=== PATIENT | male | born 1980 | race Hispanic/Latino ===

== ENCOUNTER 2022-11-08 15:05 | Inpatient (IN) | payer SELFPAY ==
[~2022-11-08] VITALS: Ht 172.7 cm; Wt 71.7 kg
[2022-11-08] MEDS ORDERED: Vancomycin IV 1 GM in SODIUM CHLORIDE 0.9% 250ML 250 ML IV ONE (15:45)
[2022-11-08] MEDS ORDERED: SODIUM CHLORIDE 0.9% 1000ML 1,000 ML IV ONE (15:45)
[2022-11-08] MEDS ORDERED: ACETAMINOPHEN 325 MG TAB PO ONE (15:45)
[2022-11-08 16:04] LABS: CLARITY,URINE SL CLOUDY (CLEAR); COLOR,URINE AMBER (YELLOW); KETONES,URINE 2+ (NEGATIVE); LEUKOCYTE ESTERASE ,URINE NEGATIVE (NEGATIVE); NITRITE,URINE NEGATIVE (NEGATIVE); PROTEIN,URINE DIPSTICK 2+ (NEGATIVE); URINE UROBILINOGEN 2 mg/dL (0.2 - 1)
[2022-11-08 16:10] LABS: BASOPHILS # (AUTO) 0.1 (0.0-0.1); BASOPHILS % 0.2 % (0.0-1.0); HEMATOCRIT 35.2 % (38.2-49.6); HEMOGLOBIN 12.9 g/dL (14.0-18.0); LYMPHOCYTES # (AUTO) 1.1 (1.0-3.2); LYMPHOCYTES % 3.5 % (18.0-39.1); MEAN CORPUSCULAR HEMOGLOBIN 29.9 pg (28-32); MEAN CORPUSCULAR HGB CONC 36.6 g/dL (31-35); MEAN CORPUSCULAR VOLUME 81.7 fL (81-99); MONOCYTES # (AUTO) 2.7 (0.2-0.8); MONOCYTES % 8.5 % (4.4-11.3); NEUTROPHILS # (AUTO) 27.3 (2.1-6.9); NEUTROPHILS % 86.7 % (38.7-80.0); PLATELET COUNT 329 x10e3/uL (140-360); RED BLOOD COUNT 4.31 x10e6/uL (4.3-5.7)
[2022-11-08 16:15] LABS: INR 1.22
[2022-11-08 16:16] LABS: PARTIAL THROMBOPLASTIN TIME 37.7 seconds (23.8-35.5)
[2022-11-08 16:23] LABS: ALBUMIN 3.1 g/dL (3.5-5.0); ALBUMIN/GLOBULIN RATIO 0.7 (0.8-2.0); AMORPHOUS SEDIMENT,URINE MANY (FEW); ANION GAP 17.4 mmol/L (8-16); BACTERIA,URINE FEW /HPF; CALCIUM 9.3 mg/dL (8.4-10.2); CREATININE, SERUM 0.97 mg/dL (0.72-1.25); POTASSIUM 4.4 mmol/L (3.5-5.1)
[2022-11-08] MEDS ORDERED: DEXTROSE 50% SYRINGE 50 ML IV PRN (16:45)
[2022-11-08] MEDS ORDERED: TETANUS/DIPHTHERIA TOX ADULT 0.5 ML SYR IM ONE (17:00)
[2022-11-08] MEDS: INSULIN LISPRO 100 UNIT/1 ML 3ML VIAL SQ SCH (18:23)
[2022-11-08] MEDS: SODIUM CHLORIDE 0.9% 1000ML 1,000 ML IV SCH (18:30)
[2022-11-08 21:13] VITALS: BP 113/84; PULSE 118; RESP 18; TEMP 97.7; O2SAT 100
[2022-11-08 21:33] VITALS: BP 113/84; PULSE 118; RESP 18; TEMP 97.7; O2SAT 100
[2022-11-08] MEDS ORDERED: LISINOPRIL10 MG PO (21:40)
[2022-11-08] MEDS ORDERED: METFORMIN HCL500 MG PO (21:40)
[2022-11-08 21:42] VITALS: BP 113/84; PULSE 118; RESP 18; TEMP 97.7; O2SAT 100
[2022-11-08] MEDS ORDERED: VENTOLIN HFA18 GM INH (21:42)
[2022-11-08] MEDS: HYDROMORPHONE 1MG/1ML INJ IV PRN (22:00)
[2022-11-09] VITALS (9 sets, daily range): BP systolic 106–117; BP diastolic 57–82; PULSE 100–131; RESP 18–20; TEMP 97.3–100.3; O2SAT 92–99
[2022-11-09] MEDS: SODIUM CHLORIDE 0.9% 1000ML 1,000 ML IV SCH ×3 (01:11→16:45)
[2022-11-09] MEDS: Vancomycin IV 1 GM in SODIUM CHLORIDE 0.9% 250ML 250 ML IV SCH ×2 (04:32→15:07)
[2022-11-09] MEDS: HYDROMORPHONE 1MG/1ML INJ IV PRN (04:33)
[2022-11-09] MEDS: ACETAMINOPHEN 325 MG TAB PO PRN (04:53)
[2022-11-09] MEDS: INSULIN LISPRO 100 UNIT/1 ML 3ML VIAL SQ SCH ×5 (06:00→20:58)
[2022-11-09 07:15] LABS: BASOPHILS # (AUTO) 0.1 (0.0-0.1); BASOPHILS % 0.4 % (0.0-1.0); HEMATOCRIT 33.3 % (38.2-49.6); HEMOGLOBIN 11.5 g/dL (14.0-18.0); LYMPHOCYTES # (AUTO) 1.3 (1.0-3.2); LYMPHOCYTES % 4.9 % (18.0-39.1); MEAN CORPUSCULAR HEMOGLOBIN 29.4 pg (28-32); MEAN CORPUSCULAR HGB CONC 34.5 g/dL (31-35); MEAN CORPUSCULAR VOLUME 85.2 fL (81-99); MONOCYTES # (AUTO) 2.3 (0.2-0.8); MONOCYTES % 9.2 % (4.4-11.3); NEUTROPHILS # (AUTO) 21.4 (2.1-6.9); NEUTROPHILS % 84.7 % (38.7-80.0); PLATELET COUNT 303 x10e3/uL (140-360); RED BLOOD COUNT 3.91 x10e6/uL (4.3-5.7); RED CELL DISTRIBUTION WIDTH 12.9 % (11.7-14.4)
[2022-11-09 07:37] LABS: ALBUMIN 2.5 g/dL (3.5-5.0); ALBUMIN/GLOBULIN RATIO 0.6 (0.8-2.0); ANION GAP 13.7 mmol/L (8-16); CALCIUM 8.6 mg/dL (8.4-10.2); CREATININE, SERUM 0.86 mg/dL (0.72-1.25); POTASSIUM 3.7 mmol/L (3.5-5.1)
[2022-11-09] MEDS ORDERED: DOCUSATE SODIUM 100 MG CAP PO PRN (08:00)
[2022-11-09] MEDS ORDERED: MELATONIN 3 MG TAB PO PRN (08:00)
[2022-11-09] MEDS ORDERED: ALBUTEROL/IPRATROPIUM 3 ML NEB NEB PRN (08:00)
[2022-11-09] MEDS ORDERED: METOPROLOL TARTRATE INJ 1 MG/ML VIAL IV PRN (08:00)
[2022-11-09] MEDS ORDERED: SIMETHICONE 80 MG CHEW PO PRN (08:00)
[2022-11-09 08:34] LABS: CHOL/HDL RATIO 4.4 (3.9-4.7)
[2022-11-09 08:35] LABS: LYMPHOCYTES % (MANUAL) 3 % (19-48); MONOCYTES % (MANUAL) 8 % (3.4-9.0); NEUTROPHILS % (MANUAL) 89 % (40-74); PLATELET ESTIMATE ADEQUATE; PLATELET MORPHOLOGY COMMENT NORMAL; RBC MORPHOLOGY COMMENT NORMAL
[2022-11-09] MEDS: FAMOTIDINE 20 MG TAB PO SCH ×2 (08:37→17:20)
[2022-11-09] MEDS ORDERED: BUPIVACAINE HCL 0.5% INJ 30 ML VIAL INJ ONE (10:43)
[2022-11-09] MEDS ORDERED: DEXAMETHASONE SOD PHOS INJ 4 MG/ML SDV ONE (11:47)
[2022-11-09] MEDS ORDERED: PROPOFOL IV EMULSION 10 MG/ML 20 ML VIAL ONE (11:47)
[2022-11-09] MEDS ORDERED: LIDOCAINE HCL 2% LOCAL INJ 5 ML SDV VIAL INJ ONE (11:47)
[2022-11-09] MEDS ORDERED: POVIDONE IODINE 0.05% 0.05 % ML PO ONE (11:47)
[2022-11-09] MEDS ORDERED: ONDANSETRON HCL INJ 2MG/ML 2ML 2 MG/ML VIAL ONE (11:47)
[2022-11-09] MEDS ORDERED: SEVOFLURANE INHAL SOLN 250 ML PEN BTL ONE (11:48)
[2022-11-09] MEDS ORDERED: TETANUS/DIPHTHERIA TOX ADULT 0.5 ML SYR IM ONE (12:30)
[2022-11-09] MEDS ORDERED: FENTANYL CITRATE/PF 100MCG/2 ML INJ ONE (13:20)
[2022-11-09] MEDS: ENOXAPARIN SOD INJ 40 MG/0.4 ML SYR SC SCH (17:21)
[2022-11-09] MEDS: CEFEPIME 2 GM in SODIUM CHLORIDE 0.9% 100 ML IV SCH (20:51)
[2022-11-10] VITALS (9 sets, daily range): BP systolic 98–129; BP diastolic 64–88; PULSE 91–105; RESP 16–22; TEMP 97.2–99.4; O2SAT 92–99
[2022-11-10] MEDS: SODIUM CHLORIDE 0.9% 1000ML 1,000 ML IV SCH ×4 (00:19→23:15)
[2022-11-10] MEDS: Vancomycin IV 1 GM in SODIUM CHLORIDE 0.9% 250ML 250 ML IV SCH ×2 (04:15→17:44)
[2022-11-10 05:00] LABS: BASOPHILS # (AUTO) 0.1 (0.0-0.1); BASOPHILS % 0.3 % (0.0-1.0); HEMATOCRIT 33.9 % (38.2-49.6); HEMOGLOBIN 11.5 g/dL (14.0-18.0); LYMPHOCYTES % 3.7 % (18.0-39.1); MEAN CORPUSCULAR HGB CONC 33.9 g/dL (31-35); MEAN CORPUSCULAR VOLUME 85.6 fL (81-99); MONOCYTES # (AUTO) 1.9 (0.2-0.8); MONOCYTES % 7.1 % (4.4-11.3); NEUTROPHILS # (AUTO) 23.1 (2.1-6.9); NEUTROPHILS % 87.6 % (38.7-80.0); PLATELET COUNT 357 x10e3/uL (140-360); RED BLOOD COUNT 3.96 x10e6/uL (4.3-5.7); RED CELL DISTRIBUTION WIDTH 12.8 % (11.7-14.4)
[2022-11-10 05:25] LABS: ALBUMIN 2.4 g/dL (3.5-5.0); ALBUMIN/GLOBULIN RATIO 0.5 (0.8-2.0); ANION GAP 14.3 mmol/L (8-16); CALCIUM 8.8 mg/dL (8.4-10.2); CREATININE, SERUM 0.81 mg/dL (0.72-1.25); POTASSIUM 4.3 mmol/L (3.5-5.1)
[2022-11-10] MEDS: INSULIN LISPRO 100 UNIT/1 ML 3ML VIAL SQ SCH ×4 (06:42→21:01)
[2022-11-10] MEDS: FAMOTIDINE 20 MG TAB PO SCH ×3 (07:30→16:30)
[2022-11-10] MEDS: CEFEPIME 2 GM in SODIUM CHLORIDE 0.9% 100 ML IV SCH ×2 (09:08→20:13)
[2022-11-10] MEDS: HYDROMORPHONE 1MG/1ML INJ IV PRN (09:14)
[2022-11-10] MEDS: ENOXAPARIN SOD INJ 40 MG/0.4 ML SYR SC SCH (17:37)
[2022-11-10] MEDS ORDERED: POVIDONE IODINE 10% 120 ML BTL EXT SCH (21:00)
[2022-11-10] MEDS ORDERED: HYDROGEN PEROXIDE 120 ML BTL TOP SCH (21:00)
[2022-11-11] VITALS (10 sets, daily range): BP systolic 93–111; BP diastolic 64–80; PULSE 95–105; RESP 17–21; TEMP 97.4–98.6; O2SAT 97–99
[2022-11-11] MEDS: HYDROMORPHONE 1MG/1ML INJ IV PRN (02:24)
[2022-11-11] MEDS: Vancomycin IV 1 GM in SODIUM CHLORIDE 0.9% 250ML 250 ML IV SCH ×2 (04:06→16:27)
[2022-11-11 07:13] LABS: BASOPHILS # (AUTO) 0.1 (0.0-0.1); BASOPHILS % 0.4 % (0.0-1.0); EOSINOPHILS # (AUTO) 0.1 (0.0-0.4); EOSINOPHILS % 0.4 % (0.0-6.0); HEMOGLOBIN 10.7 g/dL (14.0-18.0); LYMPHOCYTES # (AUTO) 2.2 (1.0-3.2); LYMPHOCYTES % 14.2 % (18.0-39.1); MEAN CORPUSCULAR HEMOGLOBIN 29.5 pg (28-32); MEAN CORPUSCULAR HGB CONC 33.4 g/dL (31-35); MEAN CORPUSCULAR VOLUME 88.2 fL (81-99); MONOCYTES # (AUTO) 1.3 (0.2-0.8); MONOCYTES % 8.6 % (4.4-11.3); NEUTROPHILS # (AUTO) 11.6 (2.1-6.9); NEUTROPHILS % 75.3 % (38.7-80.0); PLATELET COUNT 362 x10e3/uL (140-360); RED BLOOD COUNT 3.63 x10e6/uL (4.3-5.7)
[2022-11-11] MEDS: FAMOTIDINE 20 MG TAB PO SCH ×2 (07:30→16:25)
[2022-11-11] MEDS: INSULIN LISPRO 100 UNIT/1 ML 3ML VIAL SQ SCH ×4 (07:30→20:42)
[2022-11-11 07:34] LABS: ANION GAP 12.7 mmol/L (8-16); CALCIUM 8.2 mg/dL (8.4-10.2); CREATININE, SERUM 0.74 mg/dL (0.72-1.25); POTASSIUM 3.7 mmol/L (3.5-5.1)
[2022-11-11] MEDS: SODIUM CHLORIDE 0.9% 1000ML 1,000 ML IV SCH ×3 (09:16→20:36)
[2022-11-11] MEDS: CEFEPIME 2 GM in SODIUM CHLORIDE 0.9% 100 ML IV SCH ×2 (09:16→20:37)
[2022-11-11] MEDS ORDERED: FUROSEMIDE INJ 10 MG/ML 2 ML VIAL IV ONE (10:30)
[2022-11-11] MEDS: ACETAMINOPHEN 325 MG TAB PO PRN (10:47)
[2022-11-11] MEDS: ENOXAPARIN SOD INJ 40 MG/0.4 ML SYR SC SCH (16:27)
[2022-11-12] VITALS (10 sets, daily range): BP systolic 104–127; BP diastolic 55–81; PULSE 89–106; RESP 16–18; TEMP 97–98.4; O2SAT 94–100
[2022-11-12] MEDS: HYDROMORPHONE 1MG/1ML INJ IV PRN ×5 (00:57→23:58)
[2022-11-12] MEDS: SODIUM CHLORIDE 0.9% 1000ML 1,000 ML IV SCH ×2 (03:48→16:41)
[2022-11-12] MEDS: Vancomycin IV 1 GM in SODIUM CHLORIDE 0.9% 250ML 250 ML IV SCH ×2 (03:49→17:29)
[2022-11-12] MEDS ORDERED: CIPRO500 MG PO (07:30)
[2022-11-12] MEDS: INSULIN LISPRO 100 UNIT/1 ML 3ML VIAL SQ SCH ×4 (07:30→21:14)
[2022-11-12] MEDS: FAMOTIDINE 20 MG TAB PO SCH ×2 (07:30→16:30)
[2022-11-12] MEDS ORDERED: DOXYCYCLINE HY100 M3 PO (07:31)
[2022-11-12] MEDS: CEFEPIME 2 GM in SODIUM CHLORIDE 0.9% 100 ML IV SCH ×2 (08:24→20:28)
[2022-11-12] MEDS: ONDANSETRON HCL INJ 2MG/ML 2ML 2 MG/ML VIAL IV PRN ×3 (08:24→20:29)
[2022-11-12 11:47] LABS: BASOPHILS # (AUTO) 0.1 (0.0-0.1); BASOPHILS % 0.3 % (0.0-1.0); EOSINOPHILS # (AUTO) 0.2 (0.0-0.4); EOSINOPHILS % 1.2 % (0.0-6.0); HEMATOCRIT 31.2 % (38.2-49.6); HEMOGLOBIN 10.6 g/dL (14.0-18.0); LYMPHOCYTES # (AUTO) 1.7 (1.0-3.2); LYMPHOCYTES % 11.1 % (18.0-39.1); MEAN CORPUSCULAR VOLUME 85.2 fL (81-99); MONOCYTES # (AUTO) 1.4 (0.2-0.8); MONOCYTES % 9.4 % (4.4-11.3); NEUTROPHILS # (AUTO) 11.7 (2.1-6.9); NEUTROPHILS % 76.4 % (38.7-80.0); PLATELET COUNT 380 x10e3/uL (140-360); RED BLOOD COUNT 3.66 x10e6/uL (4.3-5.7)
[2022-11-12 12:06] LABS: ANION GAP 10.8 mmol/L (8-16); CREATININE, SERUM 0.53 mg/dL (0.72-1.25)
[2022-11-12 12:09] LABS: CALCIUM 6.4 mg/dL (8.4-10.2); POTASSIUM 2.8 mmol/L (3.5-5.1)
[2022-11-12] MEDS ORDERED: CALCIUM GLUC 1 G/50 ML NACL 100 ML IV ONE (14:00)
[2022-11-12] MEDS ORDERED: POTASSIUM CHLORIDE 20 MEQ TAB CR PO ONE (14:00)
[2022-11-12] MEDS: ENOXAPARIN SOD INJ 40 MG/0.4 ML SYR SC SCH (16:51)
[2022-11-12] MEDS ORDERED: Vancomycin IV 1 GM VIAL ONE (17:29)
[2022-11-12] MEDS ORDERED: POVIDONE IODINE 10% 120 ML BTL EXT SCH (21:00)
[2022-11-12] MEDS ORDERED: HYDROGEN PEROXIDE 120 ML BTL TOP SCH (21:00)
[2022-11-13] MEDS: SODIUM CHLORIDE 0.9% 1000ML 1,000 ML IV SCH (00:25)
[2022-11-13 00:36] VITALS: BP 114/89; PULSE 95; RESP 18; TEMP 98.7; O2SAT 99
[2022-11-13] MEDS: Vancomycin IV 1 GM in SODIUM CHLORIDE 0.9% 250ML 250 ML IV SCH (04:21)
[2022-11-13] MEDS: HYDROMORPHONE 1MG/1ML INJ IV PRN (04:23)
[2022-11-13 04:51] VITALS: BP 107/73; PULSE 92; RESP 18; TEMP 98.8; O2SAT 100
[2022-11-13 05:45] LABS: BASOPHILS # (AUTO) 0.1 (0.0-0.1); BASOPHILS % 0.4 % (0.0-1.0); EOSINOPHILS # (AUTO) 0.3 (0.0-0.4); EOSINOPHILS % 2.1 % (0.0-6.0); HEMOGLOBIN 10.8 g/dL (14.0-18.0); LYMPHOCYTES # (AUTO) 2.1 (1.0-3.2); LYMPHOCYTES % 15.3 % (18.0-39.1); MEAN CORPUSCULAR HGB CONC 33.8 g/dL (31-35); MONOCYTES # (AUTO) 1.3 (0.2-0.8); MONOCYTES % 9.3 % (4.4-11.3); NEUTROPHILS # (AUTO) 9.6 (2.1-6.9); NEUTROPHILS % 70.2 % (38.7-80.0); PLATELET COUNT 408 x10e3/uL (140-360); RED BLOOD COUNT 3.72 x10e6/uL (4.3-5.7); RED CELL DISTRIBUTION WIDTH 13.1 % (11.7-14.4)
[2022-11-13 06:12] LABS: ANION GAP 13.2 mmol/L (8-16); CALCIUM 8.8 mg/dL (8.4-10.2); CREATININE, SERUM 0.68 mg/dL (0.72-1.25); POTASSIUM 4.2 mmol/L (3.5-5.1)
[2022-11-13] MEDS ORDERED: TYLENOL325 MG PO (07:28)
[2022-11-13] MEDS ORDERED: ULTRAM 50MG50 MG PO (07:28)
[2022-11-13 07:39] VITALS: BP 108/75; PULSE 88; RESP 18; TEMP 98.5; O2SAT 96
== END 2022-11-13 08:38 | disposition home or self-care (01) | DRG 872 ==
LOC: ER 15:24 → ERHOLD 16:49 → MED/SURG 20:12
PROVIDERS: ADMIT Internal Medicine; ATTEND Internal Medicine
PROC: 3E03329 Introduction of Other Anti-infective into Peripheral Vein, Percutaneous Approach (ICD-10-PCS; 2022-11-08)
PROC: 0J9J0ZX Drainage of Right Hand Subcutaneous Tissue and Fascia, Open Approach, Diagnostic (ICD-10-PCS; principal; 2022-11-09 10:24)
PROC: 02HV33Z Insertion of Infusion Device into Superior Vena Cava, Percutaneous Approach (ICD-10-PCS; 2022-11-11)
PROC: B548ZZA Ultrasonography of Superior Vena Cava, Guidance (ICD-10-PCS; 2022-11-11)
DX: A41.9 Sepsis, unspecified organism (principal); L03.113 Cellulitis of right upper limb; L02.511 Cutaneous abscess of right hand; E87.1 Hypo-osmolality and hyponatremia; I10 Essential (primary) hypertension; E11.9 Type 2 diabetes mellitus without complications; G40.909 Epilepsy, unspecified, not intractable, without status epilepticus; A49.02 Methicillin resistant Staphylococcus aureus infection, unspecified site; F17.200 Nicotine dependence, unspecified, uncomplicated; Z88.5 Allergy status to narcotic agent; Z20.822 Contact with and (suspected) exposure to COVID-19
CPT/HCPCS: 36415; 80048; 80053; 80061; 80202; 81001; 82550; 82948; 83036; 83605; 83735; 84132; 84484; 85025; 85610; 85730; 87040; 87071; 87075; 87086; 87186; 87205; 93005; 94664; 94799; 99252; 99284; J0692; J1100; J1170; J1650; J1940; J2001; J2405; J2543; J7030; J7050

== ENCOUNTER 2024-04-05 23:20 | Emergency (ER) | payer OTHER ==
[~2024-04-05] VITALS: Ht 170.2 cm; Wt 91.2 kg
[~2024-04-05 23:20] MED LIST: ASPIRIN81 MG PO; BUMETANIDE1 MG PO; CEFUROXIME250 MG PO; CIPRO500 MG PO; COZAAR25 MG PO; DOXYCYCLINE HY100 M3 PO; GLIPIZIDE5 MG PO; LISINOPRIL10 MG PO; METFORMIN HCL500 MG PO; PEPCID20 MG PO; SPIRONOLACTONE25 MG PO; TOPROL XL25 MG PO; TYLENOL325 MG PO; ULTRAM 50MG50 MG PO; VENTOLIN HFA18 GM INH
[2024-04-05 23:34] VITALS: TEMP 98.6
[2024-04-05] MEDS: ONDANSETRON HCL INJ 2MG/ML 2ML 2 MG/ML VIAL IV STA (23:46)
[2024-04-05 23:55] LABS: BASOPHILS # (AUTO) 0.1 (0.0-0.1); BASOPHILS % 0.4 % (0.0-1.0); EOSINOPHILS # (AUTO) 0.2 (0.0-0.4); EOSINOPHILS % 1.2 % (0.0-6.0); HEMATOCRIT 41.6 % (38.2-49.6); HEMOGLOBIN 12.7 g/dL (14.0-18.0); LYMPHOCYTES # (AUTO) 0.9 (1.0-3.2); LYMPHOCYTES % 7.4 % (18.0-39.1); MEAN CORPUSCULAR HEMOGLOBIN 28.2 pg (28-32); MEAN CORPUSCULAR HGB CONC 30.5 g/dL (31-35); MEAN CORPUSCULAR VOLUME 92.2 fL (81-99); MONOCYTES # (AUTO) 1.4 (0.2-0.8); MONOCYTES % 11.1 % (4.4-11.3); NEUTROPHILS % 79.6 % (38.7-80.0); PLATELET COUNT 361 x10e3/uL (140-360); RED BLOOD COUNT 4.51 x10e6/uL (4.3-5.7); WHITE BLOOD COUNT 12.56 x10e3/uL (4.8-10.8)
[2024-04-06 00:09] LABS: ALBUMIN 3.1 g/dL (3.5-5.0); ALBUMIN/GLOBULIN RATIO 0.9 (0.8-2.0); ANION GAP 16.3 mmol/L (8-16); BILIRUBIN,TOTAL 1.5 mg/dL (0.2-1.2); CALCIUM 9.1 mg/dL (8.4-10.2); CREATININE, SERUM 1.26 mg/dL (0.72-1.25); POTASSIUM 4.3 mmol/L (3.5-5.1); TOTAL PROTEIN 6.6 g/dL (6.5-8.1)
[2024-04-06 00:22] VITALS: PULSE 111; RESP 23
[2024-04-06] MEDS ORDERED: BUMETANIDE1 MG PO (01:23)
[2024-04-06] MEDS ORDERED: SPIRONOLACTONE25 MG PO (01:23)
[2024-04-06] MEDS ORDERED: SPIRONOLACTONE 25 MG TAB ONE (01:29)
[2024-04-06] MEDS: BUMETANIDE 1 MG TAB PO ONE (01:39)
[2024-04-06] MEDS: SPIRONOLACTONE 25 MG TAB PO ONE (01:39)
[2024-04-06 01:54] VITALS: BP 142/104; PULSE 102; RESP 17; TEMP 98.7; O2SAT 98
== END 2024-04-06 01:58 | disposition home or self-care (01) ==
LOC: ER 23:30
DX: R06.02 Shortness of breath (principal); I50.9 Heart failure, unspecified; E11.65 Type 2 diabetes mellitus with hyperglycemia; I10 Essential (primary) hypertension; E78.5 Hyperlipidemia, unspecified; K76.9 Liver disease, unspecified; R94.31 Abnormal electrocardiogram [ECG] [EKG]
CPT/HCPCS: 36415; 71045; 80053; 83880; 84484; 85025; 93005; 99284; J2405; J2470